=== PATIENT | male | born 1965 | race Caucasian/White ===

== ENCOUNTER 2017-03-03 02:12 | Emergency (ER) | payer MEDICAID ==
[~2017-03-03] VITALS: Ht 177.8 cm; Wt 86.0 kg
[2017-03-03] MEDS ORDERED: ALPR2TAB5 PO (03:15)
[2017-03-03 04:59] VITALS: BP 117/84
== END 2017-03-03 05:01 | disposition home or self-care (01) ==
LOC: ED 04:55
DX: F41.1 Generalized anxiety disorder (principal)
CPT/HCPCS: 99284